=== PATIENT | female | born 1960 ===

== ENCOUNTER 2016-11-23 11:28 | Emergency (ER) | payer MEDICARE, MEDICAID ==
[2016-11-23 12:07] VITALS: BMI 54.8
--- NOTE | 2016-11-23 12:25 | ED PDOC ---
Arrival/HPI - General Chief Complaint: Back Pain Time Seen by Provider: 11/23/16 12:13 Historian: Patient, Family (Daughter) - History of Present Illness Time/Duration: Other (2 days) Symptom Onset: Sudden Symptom Course: Worsening Quality: Aching Severity Level: Severe Associated Symptoms (Text): 11/23/16 12:22 Patient reports that she was bending over to hop picker some trash and had acute onset of left lower back pain with radiation into her left buttocks. No abdominal pain nausea vomiting or diarrhea. No genitourinary symptoms. No weakness. No numbness. She has never experienced this previously. History of hypertension. She takes amlodipine sporadically. She is morbidly obese and crying in pain. Patient reports an aspirin allergy, but she takes Motrin and Aleve. Past Medical History - Infectious Disease Hx of Infectious Diseases: None - Tetanus Immunization Tetanus Immunization: Unknown - Cardiac Hx Hypertension: Yes - Pulmonary Hx Asthma: Yes - Psychiatric Hx Depression: No Hx Emotional Abuse: No Hx Physical Abuse: No Hx Substance Use: No - Surgical History Hx Section: Yes - Anesthesia Hx Anesthesia: No Hx Anesthesia Reactions: No Hx Malignant Hyperthermia: No - Suicidal Assessment Feels Threatened In Home Enviroment: No Family/Social History - Physician Review Nursing Documentation Reviewed: Yes Family/Social History: Unknown Family HX Smoking Status: Light Smoker < 10 Cigarettes Daily Hx Alcohol Use: No Hx Substance Use: No Hx Substance Use Treatment: No Allergies/Home Meds Allergies/Adverse Reactions: Allergies aspirin Allergy (Severe, Verified 11/23/16 12:23) ANAPHYLAXIS Home Medications: Home Meds Medication Instructions Recorded Confirmed Albuterol 0.09 mg IH PRN PRN 05/27/13 12/15/14 Fluticasone/Salmeterol 250/50 1 puff IH Q12 12/15/14 12/15/14 [Advair Diskus 250/50] Review of Systems - Physician Review All systems were reviewed & negative as marked: Yes - Review of Systems Constitutional: Normal Respiratory: Normal Cardiovascular: Normal Gastrointestinal: Normal Genitourinary Female: Normal Musculoskeletal: Back Pain. absent: Neck Pain Neurological: absent: Headache, Focal Weakness, Gait Changes Physical Exam Vital Signs Temp Pulse Resp BP Pulse Ox 11/23/16 12:29 98.1 F 93 H 20 154/111 H 99 11/23/16 12:02 98.6 F 84 18 179/100 H 96 Temperature: Afebrile Blood Pressure: Hypertensive Pulse: Regular Respiratory Rate: Normal Appearance: Positive for: Well-Appearing, Non-Toxic, Uncomfortable, Other ( Morbidly obese) Pain Distress: Severe Mental Status: Positive for: Alert and Oriented X 3 - Systems Exam Head: Present: Atraumatic, Normocephalic Neck: Present: Normal Range of Motion Respiratory/Chest: Present: Clear to Auscultation, Good Air Exchange. No: Respiratory Distress, Accessory Muscle Use Cardiovascular: Present: Regular Rate and Rhythm, Normal S1, S2. No: Murmurs Abdomen: Present: Normal Bowel Sounds. No: Tenderness, Distention, Peritoneal Signs, Rebound, Guarding Back: Present: Paraspinal Tenderness (Left lumbar paraspinous tenderness with no sciatic notch tenderness). No: CVA Tenderness, Midline Tenderness Upper Extremity: Present: Normal Inspection. No: Cyanosis, Edema Lower Extremity: Present: Normal Inspection. No: Edema Neurological: Present: GCS=15, CN II-XII Intact, Speech Normal, Motor Func Grossly Intact Skin: Present: Warm, Dry, Normal Color. No: Rashes Psychiatric: Present: Alert, Oriented x 3, Normal Insight, Normal Concentration Medical Decision Making ED Course and Treatment: 11/23/16 13:08 Symptoms markedly improved. Discharge home with daughter. Instructed to take her amlodipine as directed on a daily basis. Follow-up with PMD. Follow-up in the ER as needed. Smoking cessation and obesity counseling given. - Medication Orders Current Medication Orders: Cyclobenzaprine HCl (Flexeril) 10 mg PO ONCE ERICA Last Admin: 11/23/16 12:40 Dose: 10 MG Discontinued Medications Ketorolac Tromethamine (Toradol) 60 mg IM ONCE ONE Stop: 11/23/16 12:26 Last Admin: 11/23/16 12:40 Dose: 60 MG IM Administration Charges Document 11/23/16 12:40 MMA (Rec: 11/23/16 12:40 MMA [id number] Injection Site MAR Injection Site Left Deltoid Charges for Administration # of IM Administrations 1 Disposition/Present on Arrival - Present on Arrival Any Indicators Present on Arrival: No History of DVT/PE: No History of Uncontrolled Diabetes: No Urinary Catheter: No History of Decub. Ulcer: No History Surgical Site Infection Following: None - Disposition Have Diagnosis and Disposition been Completed?: Yes Diagnosis: Lumbar spine strain, Hypertension, Morbid obesity Disposition: HOME/ ROUTINE Disposition Time: 13:09 Patient Plan: Discharge Condition: IMPROVED Discharge Instructions (ExitCare): Acute Low Back Pain (ED) Additional Instructions: Rest and moist heat. Follow-up with PMD. Follow up in ER as needed. Prescriptions: Cyclobenzaprine [Flexeril] 5 mg PO Q8 #15 tab Naproxen [Naprosyn] 500 mg PO BID #14 tab Tramadol HCl [Ultram] 50 mg PO Q6 PRN #20 tab PRN Reason: Pain
[2016-11-23 12:29] VITALS: BP 154/111; PULSE 93; RESP 20; TEMP 98.1; O2SAT 99
== END 2016-11-23 13:36 | disposition home or self-care (01) ==
LOC: ED 11:28
DX: E66.01 Morbid (severe) obesity due to excess calories (principal); I10 Essential (primary) hypertension; S39.012A Strain of muscle, fascia and tendon of lower back, initial encounter; X50.1XXA Overexertion from prolonged static or awkward postures, initial encounter; F17.210 Nicotine dependence, cigarettes, uncomplicated
CPT/HCPCS: 96372; 99283; J1885

== ENCOUNTER 2016-11-26 08:43 | Emergency (ER) | payer MEDICARE, MEDICAID ==
[2016-11-26 08:44] VITALS: BMI 54.8
--- NOTE | 2016-11-26 08:51 | ED PDOC ---
Arrival/HPI - General Time Seen by Provider: 11/26/16 08:45 Historian: Patient - History of Present Illness Narrative History of Present Illness (Text): 11/26/16 08:47 A 55 year old female, whose past medical history includes hypertension, presents to the emergency department complaining of left lower back pain radiating to left buttock and lateral thigh. Patient was recently seen in the emergency room 3 days ago for the same pain. Patient was picking up trash and complained of left lower back pain radiating to left buttock. She denied any numbness, weakness or urinary symptoms. Patient discharged home with prescription for Flexeril and instructed to see PMD. Patient reports she was unable to see her PMD and came in today for further evaluation. Patient denies any fever, nausea, vomiting, diarrhea, constipation, abdominal pain, urinary symptoms, chest pain, shortness of breath, weakness, numbness or any other complaints. PMD: Dr. Lockhart Time/Duration: Other (3 days) Symptom Course: Unchanged Quality: Other Context: Home Past Medical History - Provider Review Nursing Documentation Reviewed: Yes - Infectious Disease Hx of Infectious Diseases: None - Tetanus Immunization Tetanus Immunization: Unknown - Cardiac Hx Hypertension: Yes - Pulmonary Hx Asthma: Yes - Psychiatric Hx Depression: No Hx Emotional Abuse: No Hx Physical Abuse: No Hx Substance Use: No - Surgical History Hx Section: Yes - Anesthesia Hx Anesthesia: No Hx Anesthesia Reactions: No Hx Malignant Hyperthermia: No - Suicidal Assessment Feels Threatened In Home Enviroment: No Family/Social History - Physician Review Nursing Documentation Reviewed: Yes Family/Social History: No Known Family HX Smoking Status: Light Smoker < 10 Cigarettes Daily Hx Alcohol Use: No Hx Substance Use: No Hx Substance Use Treatment: No Allergies/Home Meds Allergies/Adverse Reactions: Allergies aspirin Allergy (Severe, Verified 11/26/16 08:56) ANAPHYLAXIS Home Medications: Home Meds Medication Instructions Recorded Confirmed Albuterol 0.09 mg IH PRN PRN 05/27/13 11/26/16 Review of Systems - Physician Review All systems were reviewed & negative as marked: Yes - Review of Systems Constitutional: absent: Fevers Eyes: absent: Vision Changes ENT: absent: Hearing Changes Respiratory: absent: SOB Cardiovascular: absent: Chest Pain, Palpitations Gastrointestinal: absent: Abdominal Pain, Stool Changes, Constipation, Diarrhea , Nausea, Vomiting, Appetite Changes Genitourinary Female: absent: Dysuria, Frequency, Hematuria, Urine Output Changes Musculoskeletal: Back Pain (Left lower back pain raditing to left buttock and lateral thigh). absent: Neck Pain Skin: absent: Rash Neurological: absent: Headache, Dizziness, Focal Weakness, Gait Changes Endocrine: absent: Diaphoresis Hemo/Lymphatic: absent: Adenopathy Psychiatric: absent: Anxiety Physical Exam Vital Signs Reviewed: Yes Vital Signs Temp Pulse Resp BP Pulse Ox 11/26/16 11:16 98.0 F 79 18 179/83 H 98 11/26/16 08:46 97.8 F 87 18 181/91 H 99 Temperature: Afebrile Blood Pressure: Hypertensive Pulse: Regular Respiratory Rate: Normal Appearance: Positive for: Well-Appearing, Non-Toxic, Comfortable, Other (Obese female) Pain Distress: None Mental Status: Positive for: Alert and Oriented X 3 - Systems Exam Head: Present: Atraumatic, Normocephalic Pupils: Present: PERRL Extroacular Muscles: Present: EOMI Conjunctiva: Present: Normal Mouth: Present: Moist Mucous Membranes Neck: Present: Normal Range of Motion Respiratory/Chest: Present: Clear to Auscultation, Good Air Exchange. No: Respiratory Distress, Accessory Muscle Use Cardiovascular: Present: Regular Rate and Rhythm, Normal S1, S2. No: Murmurs Abdomen: Present: Normal Bowel Sounds. No: Tenderness, Distention, Peritoneal Signs Back: Present: Other (pinpoint tenderness to L buttock and L upper lat thigh along sciatic distribution). No: Midline Tenderness Upper Extremity: Present: Normal Inspection, NORMAL PULSES. No: Cyanosis, Edema Lower Extremity: Present: Normal Inspection, NORMAL PULSES. No: Edema Neurological: Present: GCS=15, CN II-XII Intact, Speech Normal, Motor Func Grossly Intact, Normal Sensory Function, Gait Normal Skin: Present: Warm, Dry, Normal Color. No: Rashes Psychiatric: Present: Alert, Oriented x 3, Normal Insight, Normal Concentration Medical Decision Making ED Course and Treatment: 11/26/16 08:47 Impression: A 55 year old female with left lower back pain radiating to left buttock and lateral thigh. Non-traumatic. Afebrile and well appearing. No neuro deficits. Seen in ED 3 days ago for same. Differential Diagnosis included but are not limited to: Sciatica vs bursitis. Plan: -- LS spine xray -- Urinalysis -- Flexeril and Toradol -- Reassess and disposition Prior Visits: Notes and results from previous visits were reviewed. Patient last seen in the ED on 11/23/16 for back pain. Progress Notes: Will order an xray to rule out any fracture since this is patients second visit for the same complaint. Will get ua. Patient instructed to follow up with her PMD to receive a referral for physical therapy. 11/26/16 09:38 Labs reviewed, normal urinalysis results, no blood. Report Date : 11/26/2016 11:59:07 PROCEDURE: Radiographs of the Lumbar Spine. Dictator : Mika Cooper IMPRESSION: Somewhat limited study due to the patient's body habitus. No evidence of acute fracture or dislocation. Advanced degenerative changes/ spondylosis associated with multilevel osteophyte formation and narrowing of the intervertebral disc spaces. 11/26/16 12:04 On re-evaluation, patient feels better and is in no acute distress. I have discussed the results and plan with the patient, who expresses understanding. Patient in agreement with plan to be discharged home. Patient is stable for discharge. Patient was instructed to follow up with physician and orthopedist or return if symptoms worsen or new concerning symptoms arise. - Lab Interpretations Lab Results: Lab Results 11/26/16 09:25: Urine Color Yellow, Urine Appearance Clear, Urine pH 5.5, Ur Specific [place] >= 1.030, Urine Protein Negative, Urine Glucose (UA) Negative, Urine Ketones Negative, Urine Blood Negative, Urine Nitrate Negative, Urine Bilirubin Negative, Urine Urobilinogen 0.2, Ur Leukocyte Esterase Negative - RAD Interpretation Radiology Orders: 11/26/16 09:13 LS SPINE WITH OBL > 18 YRS OLD [RAD] Stat - Medication Orders Current Medication Orders: Discontinued Medications Cyclobenzaprine HCl (Flexeril) 10 mg PO STAT STA Stop: 11/26/16 09:14 Last Admin: 11/26/16 09:33 Dose: 10 MG Diazepam (Valium) 5 mg PO STAT STA PRN Reason: Protocol Stop: 11/26/16 11:43 Ketorolac Tromethamine (Toradol) 30 mg IM STAT STA Stop: 11/26/16 09:14 Ketorolac Tromethamine (Toradol) 60 mg IM STAT STA Stop: 11/26/16 09:14 Last Admin: 11/26/16 09:33 Dose: 60 MG IM Administration Charges Document 11/26/16 09:33 SE (Rec: 11/26/16 09:33 SE [id number]) Injection Site MAR Injection Site Left Vastus Lateralis Charges for Administration # of IM Administrations 1 - Scribe Statement The provider has reviewed the documentation as recorded by the Scribe Hazel Escobar Provider Scribe Attestation: All medical record entries made by the Scribe were at my direction and personally dictated by me. I have reviewed the chart and agree that the record accurately reflects my personal performance of the history, physical exam, medical decision making, and the department course for this patient. I have also personally directed, reviewed, and agree with the discharge instructions and disposition. Disposition/Present on Arrival - Present on Arrival Any Indicators Present on Arrival: No History of DVT/PE: No History of Uncontrolled Diabetes: No Urinary Catheter: No History Surgical Site Infection Following: None - Disposition Have Diagnosis and Disposition been Completed?: Yes Diagnosis: Back pain Disposition: HOME/ ROUTINE Disposition Time: 12:04 Patient Plan: Discharge Patient Problems: Current Active Problems Problem Status Diagnosed Back pain Acute Condition: GOOD Discharge Instructions (ExitCare): Acute Low Back Pain (ED) Additional Instructions: Follow up with PMD within 2 days for ortho and PMR referral. Return to ED if condition worsens. Take medication as prescribed. Prescriptions: Cyclobenzaprine [Flexeril] 5 mg PO TID #14 tab traMADol [Ultram] 50 mg PO TID #14 tab Referrals: Dionicio Lockhart MD [Primary Care Provider] - Follow up with primary
[2016-11-26 09:02] VITALS: RESP 18
[2016-11-26 09:33] LABS: PH,URINE 5.5 (4.7-8.0); URINE APPEARANCE CLEAR (CLEAR); URINE BILIRUBIN NEGATIVE (NEGATIVE); URINE BLOOD NEGATIVE (NEGATIVE); URINE COLOR YELLOW (YELLOW); URINE GLUCOSE (UA) NEGATIVE (NEGATIVE); URINE KETONE NEGATIVE (NEGATIVE); URINE LEUKOCYTE ESTERASE NEGATIVE Leu/uL (NEGATIVE); URINE PROTEIN NEGATIVE mg/dL (<30 mg/dL); URINE UROBILINOGEN 0.2 E.U./dL (<1 E.U./dL)
[2016-11-26 11:17] VITALS: BP 179/83; PULSE 79; TEMP 98; O2SAT 98
--- NOTE | 2016-11-26 12:00 | RAD ---
PROCEDURE: Radiographs of the Lumbar Spine. HISTORY: back pain COMPARISON: No prior. FINDINGS: BONES: Normal alignment. No listhesis. No fracture. DISC SPACES: Advanced spondylosis and degenerative changes associated with large anterior and posterior osteophyte formation. There are multilevel narrowing of the disc spaces. OTHER FINDINGS: None. IMPRESSION: Somewhat limited study due to the patient's body habitus. No evidence of acute fracture or dislocation. Advanced degenerative changes/spondylosis associated with multilevel osteophyte formation and narrowing of the intervertebral disc spaces.
== END 2016-11-26 12:20 | disposition home or self-care (01) ==
LOC: ED 08:43
DX: M54.5 Low back pain (principal); I10 Essential (primary) hypertension; F17.210 Nicotine dependence, cigarettes, uncomplicated
CPT/HCPCS: 72110; 81003; 96372; 99284; J1885

== ENCOUNTER 2016-12-22 18:49 | Emergency (ER) | payer MEDICARE, MEDICAID ==
[2016-12-22 18:55] VITALS: BMI 62.4
[2016-12-22 19:11] VITALS: RESP 18; TEMP 97.9
--- NOTE | 2016-12-22 19:15 | ED PDOC ---
Arrival/HPI - General Chief Complaint: Chest Pain Time Seen by Provider: 12/22/16 19:00 Historian: Patient - History of Present Illness Narrative History of Present Illness (Text): 12/22/16 19:12 56 year old female with a past medical history that includes hypertension and asthma presents to the emergency department with chest pressure and shortness of breath since this morning. Patient also states she experienced palpitations last night. She states the shortness of breath feels different from her asthma. Patient reports she used her pump with no improvement. She also reports a tightness in the left side of her neck. Patient states she had similar symptoms in the past while she was [place] in [place] but did not see a doctor as symptoms resolved spontaneously. No recent travel or prolonged immobilization. Denies cough, runny nose, fever, congestion, calf pain, or other symptoms. PMD: Dr. Richardson Time/Duration: 24 hours Symptom Onset: Sudden Symptom Course: Unchanged Quality: Pressure Context: Home Past Medical History - Provider Review Nursing Documentation Reviewed: Yes - Infectious Disease Hx of Infectious Diseases: None - Tetanus Immunization Tetanus Immunization: Unknown - Reproductive Menopause: Yes - Cardiac Hx Hypertension: Yes - Pulmonary Hx Asthma: Yes - Neurological Hx Vertigo: Yes - Psychiatric Hx Substance Use: No - Surgical History Hx Section: Yes - Anesthesia Hx Anesthesia: No Hx Anesthesia Reactions: No Hx Malignant Hyperthermia: No - Suicidal Assessment Feels Threatened In Home Enviroment: No Family/Social History - Physician Review Nursing Documentation Reviewed: Yes Family/Social History: Unknown Family HX Smoking Status: Light Smoker < 10 Cigarettes Daily Hx Alcohol Use: No Hx Substance Use: No Hx Substance Use Treatment: No Allergies/Home Meds Allergies/Adverse Reactions: Allergies aspirin Allergy (Severe, Verified 11/26/16 08:56) ANAPHYLAXIS Home Medications: Home Meds Medication Instructions Recorded Confirmed Albuterol 0.09 mg IH PRN PRN 05/27/13 12/22/16 Losartan/Hydrochlorothiazide 1 tab PO DAILY 12/22/16 12/22/16 [Losartan-Hctz 50-12.5 mg Tab] Meclizine [Meclizine*] 12.5 mg PO TID 12/22/16 12/22/16 Review of Systems - Physician Review All systems were reviewed & negative as marked: Yes - Review of Systems Constitutional: absent: Fevers ENT: absent: Rhinorrhea, Sinus Congestion Respiratory: SOB. absent: Cough Cardiovascular: Chest Pain, Palpitations. absent: Edema, Calf Pain Musculoskeletal: Other (Tightness on the left side of her neck) Neurological: absent: Dizziness Physical Exam Vital Signs Reviewed: Yes Vital Signs Temp Pulse Resp BP Pulse Ox 12/22/16 21:25 100 H 18 130/93 H 97 12/22/16 18:50 97.9 F 105 H 18 171/82 H 99 Temperature: Afebrile Blood Pressure: Hypertensive Pulse: Tachycardic Respiratory Rate: Normal Appearance: Positive for: Well-Appearing, Non-Toxic, Comfortable, Other (Obese) Pain Distress: None Mental Status: Positive for: Alert and Oriented X 3 - Systems Exam Head: Present: Atraumatic, Normocephalic Pupils: Present: PERRL Extroacular Muscles: Present: EOMI Conjunctiva: Present: Normal Mouth: Present: Moist Mucous Membranes Neck: Present: Normal Range of Motion Respiratory/Chest: Present: Clear to Auscultation, Good Air Exchange. No: Respiratory Distress, Accessory Muscle Use Cardiovascular: Present: Regular Rate and Rhythm, Normal S1, S2. No: Murmurs Abdomen: Present: Normal Bowel Sounds. No: Tenderness, Distention, Peritoneal Signs Back: Present: Normal Inspection Upper Extremity: Present: Normal Inspection. No: Cyanosis, Edema Lower Extremity: Present: Normal Inspection. No: Edema, CALF TENDERNESS Neurological: Present: GCS=15, CN II-XII Intact, Speech Normal Skin: Present: Warm, Dry, Normal Color. No: Rashes Psychiatric: Present: Alert, Oriented x 3, Normal Insight, Normal Concentration Medical Decision Making ED Course and Treatment: Impression: 56 year old female with a past medical history that includes hypertension and asthma presents to the emergency department with chest pressure and shortness of breath since this morning. Differential Diagnosis included but are not limited to: Chest pain, shortness of breath r/o ACS r/o PE. Patients lungs wear clear and she doesn't appear in respiratory distress. Less likely asthma. Plan: -- EKG, CXR -- Labs -- Reassess and disposition Prior Visits: Notes and results from previous visits were reviewed. Patient last seen in ED on 11/26/16 for back pain and discharged home. Progress Notes: 12/22/16 21:03 The patient is choosing to leave against medical advice. She states that she thinks she was just stressed out and anxious because she's been taking care of her daughter and 5 grand kids which are alot of work. She can't handle it sometimes. Now that she's calm all her symptoms went away. She thank me for listening to her. I advised her that we should monitoring for cardiac causes but she still reitterated she wants to sign AMA. I have personally explained to the patient that choosing to do so may result in permanent bodily harm or . I have discussed at great length that without further evaluation and monitoring there may be unforeseen circumstances and/or deterioration causing permanent bodily harm or as a result of their choice. The patient is alert, oriented, and shows the mental capacity to make clear decisions regarding the patients health care at this time. The patient continues to wish to leave against medical advice. In light of the patients decision to leave against medical advice, follow-up has been arranged and the patient is aware of the importance to following up as instructed. The patient has been advised that they should return to the emergency room immediately if they change their mind at any time, or if their condition begins to change or worsen in any way.. - Lab Interpretations Lab Results: 12/22/16 19:15 12/22/16 19:15 Lab Results 12/22/16 20:50: Urine Color Straw, Urine Appearance Clear, Urine pH 6.5, Ur Specific Cummings <= 1.005, Urine Protein Negative, Urine Glucose (UA) Negative, Urine Ketones Negative, Urine Blood Negative, Urine Nitrate Negative, Urine Bilirubin Negative, Urine Urobilinogen 0.2, Ur Leukocyte Esterase Negative 12/22/16 19:15: WBC 7.6, RBC 4.65, Hgb 14.5, Hct 42.9, MCV 92.3, MCH 31.2, MCHC 33.8, RDW 13.9, Plt Count 333, MPV 10.0, Gran % 50.0, Lymph % (Auto) 35.5 H, [place] % (Auto) 10.6 H, Eos % (Auto) 3.5, Baso % (Auto) 0.4, Gran # 3.82, Lymph # 2.7, [place] # 0.8 H, Eos # 0.3, Baso # 0.03, PT 10.4, INR 0.96, APTT 28.7, D-Dimer , Quantitative 0.57 H, Sodium 137, Potassium 3.9, Chloride 98, Carbon Dioxide 29 , Anion Gap 14, BUN 11, Creatinine 0.7, Est GFR ( Amer) > 60, Est GFR ( Non-Af Amer) > 60, Random Glucose 107, Calcium 9.4, Magnesium 2.1, Total Bilirubin 0.6, AST 37, ALT 30, Alkaline Phosphatase 117, Lactate Dehydrogenase 532, Total Creatine Kinase 72, Troponin I < 0.01, NT-Pro-B Natriuret Pep 33.6, Total Protein 8.5 H, Albumin 4.1, Globulin 4.4, Albumin/Globulin Ratio 0.9 L I have reviewed the lab results: Yes Interpretation: Abnormal lab values (elevated dimer) - RAD Interpretation Radiology Orders: 12/22/16 19:15 CHEST PORTABLE [RAD] Stat 12/22/16 19:51 ANGIO CHEST PE PROTOCOL [CT] Stat - EKG Interpretation EKG Interpretation (Text): EKG shows sinus tachycardia at [address] segment elevations, normal axis, normal intervals Interpreted by ED Physician: Yes Type: 12 lead EKG - Medication Orders Current Medication Orders: Discontinued Medications Iohexol (Omnipaque 350 100 Ml) Confirm Administered Dose 350 mg .ROUTE .STK-MED ONE Stop: 12/22/16 20:00 Iohexol (Omnipaque 350 100 Ml) Confirm Administered Dose 350 mg .ROUTE .STK-MED ONE Stop: 12/22/16 20:01 - Scribe Statement The provider has reviewed the documentation as recorded by the Yolanda Hernandez Provider Scribe Attestation: All medical record entries made by the Yolanda were at my direction and personally dictated by me. I have reviewed the chart and agree that the record accurately reflects my personal performance of the history, physical exam, medical decision making, and the department course for this patient. I have also personally directed, reviewed, and agree with the discharge instructions and disposition. Disposition/Present on Arrival - Present on Arrival Any Indicators Present on Arrival: No History of DVT/PE: No History of Uncontrolled Diabetes: No Urinary Catheter: No History of Decub. Ulcer: No History Surgical Site Infection Following: None - Disposition Have Diagnosis and Disposition been Completed?: Yes Diagnosis: Chest pain, Shortness of breath Disposition: AGAINST MEDICAL ADVICE Disposition Time: 21:31 Condition: IMPROVED Discharge Instructions (ExitCare): Chest Pain (ED) Additional Instructions: Ms Hu, thank you for letting us take care of you today. Your provider was Dr. Hoffman. You were treated for Chest Pain, Shortness of Breathe. The emergency medical care you received today was directed at your acute symptoms. If you were prescribed any medication, please fill it and take as directed. It may take several days for your symptoms to resolve. Return to the Emergency Department if your symptoms worsen, do not improve, or if you have any other problems. Please contact your doctor or call one of the physicians/clinics you have been referred to that are listed on the Patient Visit Information form that is included in your discharge packet. Bring any paperwork you were given at discharge with you along with any medications you are taking to your follow up visit. Our treatment cannot replace ongoing medical care by a primary care provider (PCP) outside of the emergency department. Thank you for allowing the [facility] team to be part of your care today. If you had an X-Ray or CT scan: A Radiologist will review the ED reading if any change in treatment is needed we will contact you. If you had a blood, urine, or wound culture: It will take several days for the results, if any change in treatment is needed we will contact you. If you had an STI test: It will take 48 hours for the results. Please call after 1 week if you have not heard back. Referrals: Alecia Richardson MD [Primary Care Provider] - Follow up with primary
[2016-12-22 19:21] LABS: ADD MANUAL DIFF? NO
[2016-12-22 19:34] LABS: ALB/GLOB RATIO 0.9 (1.1-1.8); ALKALINE PHOSPHATASE 117 U/L (38-133); ALT/SGPT 30 U/L (7-56); AST/SGOT 37 U/L (15-39); BASO # 0.03 K/mm3 (0.0-2.0); BASO % 0.4 % (0.0-3.0); BILIRUBIN,TOTAL 0.6 mg/dL (0.2-1.3); BLOOD UREA NITROGEN 11 mg/dL (7-21); CALCIUM 9.4 mg/dL (8.4-10.5); CARBON DIOXIDE 29 mmol/L (21-33); CHLORIDE 98 mmol/L (98-107); EOS # 0.3 (0.0-0.7); EOS % 3.5 % (1.5-5.0); GFR AFRICAN-AMERICAN > 60; GLUCOSE,RANDOM 107 mg/dL (70-110); GRAN # 3.82 (1.4-6.5); HEMATOCRIT 42.9 % (36.0-48.0); LYMPH # 2.7 (1.2-3.4); LYMPH % 35.5 % (22.0-35.0); MAGNESIUM 2.1 mg/dL (1.7-2.2); MEAN CELL VOLUME 92.3 fL (80.0-105.0); MEAN CORPUSCULAR HEMOGLOBIN 31.2 pg (25.0-35.0); MEAN CORPUSCULAR HGB CONC 33.8 g/dl (31.0-37.0); MONO # 0.8 (0.1-0.6); MONO % 10.6 % (1.0-6.0); PLATELET COUNT 333 10^3/uL (120.0-450.0); POTASSIUM 3.9 mmol/L (3.6-5.0); RED CELL DISTRIBUTION WIDTH 13.9 % (11.5-14.5); SODIUM 137 mmol/L (132-148); TOTAL PROTEIN 8.5 g/dL (5.8-8.3); WHITE BLOOD COUNT 7.6 10^3/ul (4.5-11.0)
[2016-12-22 19:39] LABS: D DIMER 0.57 mg/L FEU (0-0.50); INR 0.96 (0.93-1.08); PARTIAL THROMBOPLASTIN TIME 28.7 Seconds (23.7-30.8)
[2016-12-22 19:52] LABS: TROPONIN I < 0.01 ng/mL
[2016-12-22] MEDS ORDERED: Iohexol 350 MG/100 ML VIAL ONE ×2 (19:59→20:00)
[2016-12-22 21:02] LABS: PH,URINE 6.5 (4.7-8.0); URINE BILIRUBIN NEGATIVE (NEGATIVE); URINE BLOOD NEGATIVE (NEGATIVE); URINE GLUCOSE (UA) NEGATIVE (NEGATIVE); URINE KETONE NEGATIVE (NEGATIVE); URINE LEUKOCYTE ESTERASE NEGATIVE Leu/uL (NEGATIVE); URINE PROTEIN NEGATIVE mg/dL (<30 mg/dL); URINE UROBILINOGEN 0.2 E.U./dL (<1 E.U./dL)
[2016-12-22 21:03] LABS: URINE APPEARANCE CLEAR (CLEAR); URINE COLOR STRAW (YELLOW)
[2016-12-22 21:27] VITALS: BP 130/93; PULSE 100; O2SAT 97
--- NOTE | 2016-12-23 07:31 | RAD ---
HISTORY: chest pain COMPARISON: Comparison chest 12/15/2014 theNo prior. FINDINGS: LUNGS: No active pulmonary disease. PLEURA: No significant pleural effusion identified, no pneumothorax apparent. CARDIOVASCULAR: Normal. OSSEOUS STRUCTURES: No significant abnormalities. VISUALIZED UPPER ABDOMEN: Normal. OTHER FINDINGS: None. IMPRESSION: No active disease.
--- NOTE | 2016-12-23 10:00 | CT ---
PROCEDURE: CT angiogram of the chest dated 12/22/2016 HISTORY: Shortness of breath. Rule out PE. COMPARISON: None. TECHNIQUE: Technique: Ue: CT angiography of the chest performed in standard fashion following the intravenous injection of approximately 98 cc of Omnipaque 350 contrast material. . Coronal and sagittal reformats, and well as rotating MIP images of the vessels generated at the workstation. Note that the study is limited due to suboptimal opacification of the pulmonary circulation and very large body habitus Radiation dose: Total exam DLP = 674.31 mGy-cm. This CT exam was performed using one or more of the following dose reduction techniques: Automated exposure control, adjustment of the mA and/or kV according to patient size, and/or use of iterative reconstruction technique. Findings: Note that the the distal of pulmonary vasculature is poorly delineated. No evidence of large filling defects seen within the pulmonary trunk, right and left main or lobar branches. The segmental and more so the subsegmental branches are poorly delineated on. Pulmonary trunk measures approximately 2.4 cm. Heart size normal. No significant pericardial effusion. Ascending thoracic aorta measures approximately 3.6 cm and descending thoracic aorta measures approximately 2.55 cm. There are a few small nonspecific mediastinal and hilar lymph nodes. The trachea and mainstem bronchi are patent on without obvious large intraluminal filling defects. There is a small hiatal hernia. Lung estrada are clear without focal consolidation or effusion. No obvious parenchymal nodule or mass. Some mild multilevel degenerative spondylosis of the thoracic spine. There appears to be mild enlargement of the thyroid gland right lobe large than left which is poorly delineated due to significant streak and beam hardening artifact related to dense clavicles, shoulder girdles large body habitus and dense contrast material within the right subclavian vein related intravenous injection. . Note made of a large exophytic cyst upper pole left kidney which measures at least 7 cm in transverse dimension. Consider followup renal ultrasound for further evaluation. Approximately 2.5 cm right adrenal nodule with smaller on approximately 1 cm left adrenal nodule poorly characterized of however possibly representing adenomas. Impression: Move very limited study. No definitive evidence of large central pulmonary embolus. Note that the as the segmental and subsegmental branches of the pulmonary arteries are poorly visualized on. Large left renal cyst. Bilateral adrenal nodules. Followup renal ultrasound recommended. Enlarged thyroid gland right lobe large than left. Recommend followup thyroid ultrasound.
--- NOTE | 2016-12-23 10:16 | CARD ---
APPROVED REPORT EKG Measurement Heart [id number] <Conclusion> Sinus tachycardia Otherwise normal ECG
== END 2016-12-22 21:31 | disposition left against medical advice (07) ==
LOC: ED 18:49
DX: R07.9 Chest pain, unspecified (principal); R06.02 Shortness of breath; F17.210 Nicotine dependence, cigarettes, uncomplicated; I10 Essential (primary) hypertension
CPT/HCPCS: 71010; 71275; 80053; 81003; 82550; 83615; 83735; 83880; 84484; 85025; 85378; 85610; 85730; 93005; 99283; Q9967

== ENCOUNTER 2018-02-19 11:52 | Emergency (ER) | payer MEDICARE, MEDICAID ==
[2018-02-19 12:50] VITALS: BMI 57.9
[2018-02-19 12:54] VITALS: BP 193/80; PULSE 74; RESP 18; TEMP 98.4; O2SAT 98
== END 2018-02-19 13:13 | disposition left against medical advice (07) ==
LOC: ED 11:52
DX: Z02.89 Encounter for other administrative examinations (principal); M54.5 Low back pain

== ENCOUNTER 2018-04-25 00:49 | Emergency (ER) | payer OTHER, MEDICAID ==
[2018-04-25 00:54] VITALS: BMI 66.6
[2018-04-25] MEDS ORDERED: Albuterol 0.083% Inhal Sol (2.5 mg/3 mL) UD INH STA (01:10)
[2018-04-25] MEDS ORDERED: Ipratropium 0.02% Inhal Soln (0.5 mg/2.5 ml) UD IH STA (01:10)
--- NOTE | 2018-04-25 01:24 | ED PDOC ---
Arrival/HPI - General Chief Complaint: Shortness Of Breath Time Seen by Provider: 04/25/18 00:55 Historian: Patient - History of Present Illness Narrative History of Present Illness (Text): 04/25/18 01:00 Beatriz Hu is 57 y/o F w/ h/o hypertension and asthma, presenting to the ED complaining of shortness of breath for the last couple of hours. Patient notes she was sleeping until suddenly awakened by a heavy feeling in her chest. Patient states she had palpitations with associated dyspnea & lightheadedness. She denies this episode feeling similar to her previous asthma attacks. Patient denies any fevers, chills, chest pain, abdominal pain, nausea, vomiting, diarrhea, back pain, neck pain, urinary symptoms, headache, dizziness, or any other complaint. PMD: Dr. Richardson Time/Duration: Prior to Arrival Symptom Onset: Sudden Symptom Course: Improving Quality: Other (heavy feeling in chest) Severity Level: Mild Activities at Onset: Rest Context: Home Past Medical History - Provider Review Nursing Documentation Reviewed: Yes - Travel History Have you recently traveled outside [place] w/in the past 3 mons?: No - Infectious Disease Hx of Infectious Diseases: None - Tetanus Immunization Tetanus Immunization: Unknown - Cardiac Hx Hypertension: Yes - Pulmonary Hx Asthma: Yes - Neurological Hx Vertigo: Yes - Endocrine/Metabolic Hx Diabetes Mellitus Type 2: No - Psychiatric Hx Depression: No Hx Emotional Abuse: No Hx Physical Abuse: No Hx Substance Use: No - Surgical History Hx Section: Yes (x2) - Anesthesia Hx Anesthesia: Yes Hx Anesthesia Reactions: No Hx Malignant Hyperthermia: No - Suicidal Assessment Feels Threatened In Home Enviroment: No Family/Social History - Physician Review Nursing Documentation Reviewed: Yes Family/Social History: No Known Family HX Smoking Status: Light Smoker < 10 Cigarettes Daily Hx Alcohol Use: No Hx Substance Use: No Hx Substance Use Treatment: No Allergies/Home Meds Allergies/Adverse Reactions: Allergies aspirin Allergy (Severe, Verified 04/25/18 00:53) ANAPHYLAXIS Home Medications: Home Meds Medication Instructions Recorded Confirmed Meclizine [Meclizine*] 12.5 mg PO TID PRN 12/22/16 02/19/18 Albuterol HFA [Ventolin HFA 90 1 puff IH DAILY PRN 02/19/18 02/19/18 mcg/actuation (8 g)] Budesonide/Formoterol Fumarate 1 puff IH DAILY 02/19/18 02/19/18 [Symbicort 80-4.5 Mcg Inhaler] amLODIPine [Norvasc] 1 tab PO DAILY 02/19/18 02/19/18 Review of Systems - Physician Review All systems were reviewed & negative as marked: Yes - Review of Systems Constitutional: Normal. absent: Fevers, Night Sweats Eyes: Normal ENT: Normal Respiratory: SOB. absent: Normal, Cough Cardiovascular: Palpitations, Other (patient notes "heavy feeling" in chest). absent: Normal Gastrointestinal: Normal. absent: Diarrhea, Nausea, Vomiting Genitourinary Female: Normal. absent: Urine Output Changes Musculoskeletal: Normal. absent: Back Pain, Neck Pain Skin: Normal Neurological: Other (patient notes some lightheadedness). absent: Normal, Headache, Dizziness Endocrine: Normal Hemo/Lymphatic: Normal Psychiatric: Normal Physical Exam - Physical Exam Narrative Physical Exam (Text): Morbidly obese. Vital Signs Reviewed: Yes Vital Signs Temp Pulse Resp BP Pulse Ox 04/25/18 02:32 98.3 F 87 18 138/72 100 04/25/18 01:25 18 98 04/25/18 01:11 94 H 18 142/63 98 Blood Pressure: Normal Pulse: Regular Respiratory Rate: Normal Appearance: Positive for: Well-Appearing, Non-Toxic Mental Status: Positive for: Alert and Oriented X 3 - Systems Exam Head: Present: Atraumatic, Normocephalic Pupils: Present: PERRL Extroacular Muscles: Present: EOMI Conjunctiva: Present: Normal Mouth: Present: Moist Mucous Membranes Neck: Present: Normal Range of Motion Respiratory/Chest: Present: Clear to Auscultation, Good Air Exchange. No: Respiratory Distress, Accessory Muscle Use, Wheezes Cardiovascular: Present: Regular Rate and Rhythm, Normal S1, S2. No: Murmurs Abdomen: No: Tenderness, Distention, Peritoneal Signs Back: Present: Normal Inspection Upper Extremity: Present: Normal Inspection. No: Cyanosis, Edema Lower Extremity: Present: Normal Inspection. No: Edema Neurological: Present: GCS=15, CN II-XII Intact, Speech Normal Skin: Present: Warm, Dry, Normal Color. No: Rashes Psychiatric: Present: Alert, Oriented x 3, Normal Insight, Normal Concentration Medical Decision Making ED Course and Treatment: 04/25/18 01:00 Impression: 57 year old female presents to the Emergency department complaining of shortness of breath. Plan: -- Labs -- X-Ray of chest -- Albuterol -- Atrovent -- Reassess and disposition Prior Visits: Notes and results from previous visits were reviewed. Progress Notes: 04/25/18 01:21 Labs reviewed with no leukocytosis or significant electrolyte abnormalities noted. Chest X-ray: Ordered, reviewed, and independently interpreted the CXR. Cardiomegaly. Low lung volumes. No PTX noted. Vascular congestion present. No infiltrates. 04/25/18 02:27 Reevaluation of patient reveals marked improvement in respiratory profile. Patient reports to feeling better and desires to go home. Updated patient on findings and educated on warning symptoms for return protocol. She is advised to follow up with PMD. She is stable for discharge. - Lab Interpretations Lab Results: 04/25/18 01:21 04/25/18 01:21 Lab Results 04/25/18 01:21: Sodium 146, Potassium 3.8, Chloride 107, Carbon Dioxide 25, Anion Gap 17, BUN 14, Creatinine 0.6 L, Est GFR ( Amer) > 60, Est GFR ( Non-Af Amer) > 60, Random Glucose 129 H, Calcium 9.0, Total Bilirubin 0.4, AST 41 H, ALT 39, Alkaline Phosphatase 116, Troponin I < 0.01, NT-Pro-B Natriuret Pep 58.1, Total Protein 7.7, Albumin 4.0, Globulin 3.7, Albumin/Globulin Ratio 1.1 04/25/18 01:21: PT 11.6, INR 1.02, APTT 35.0 04/25/18 01:21: WBC 8.9, RBC 4.24, Hgb 13.2, Hct 39.1, MCV 92.2, MCH 31.1, MCHC 33.8, RDW 14.1, Plt Count 324, MPV 10.4, Gran % 47.0 L, Lymph % (Auto) 34.9, [place] % (Auto) 9.5 H, Eos % (Auto) 7.8 H, Baso % (Auto) 0.8, Gran # 4.19, Lymph # (Auto) 3.1, [place] # (Auto) 0.9 H, Eos # (Auto) 0.7, Baso # (Auto) 0.07 - RAD Interpretation Radiology Orders: 04/25/18 01:15 CHEST PORTABLE [RAD] Stat Grab Hooker: ED Physician - EKG Interpretation EKG Interpretation (Text): NSR @ 96. No ST elevations or depressions. Interpreted by ED Physician: Yes Type: 12 lead EKG - Medication Orders Current Medication Orders: Discontinued Medications Albuterol Sulfate (Albuterol 0.083% Inhal Yas (2.5 Mg/3 Ml) Ud) 2.5 mg INH STAT STA Stop: 04/25/18 01:11 Last Admin: 04/25/18 01:29 Dose: 2.5 mg Ipratropium [place] (Atrovent) 0.5 mg IH STAT STA Stop: 04/25/18 01:11 Last Admin: 04/25/18 01:29 Dose: 0.5 mg - Scribe Statement The provider has reviewed the documentation as recorded by the Scribe Donna Silvah All medical record entries made by the Brianibe were at my direction and personally dictated by me. I have reviewed the chart and agree that the record accurately reflects my personal performance of the history, physical exam, medical decision making, and the department course for this patient. I have also personally directed, reviewed, and agree with the discharge instructions and disposition. Disposition/Present on Arrival - Present on Arrival Any Indicators Present on Arrival: No History of DVT/PE: No History of Uncontrolled Diabetes: No Urinary Catheter: No History of Decub. Ulcer: No History Surgical Site Infection Following: None - Disposition Have Diagnosis and Disposition been Completed?: Yes Diagnosis: Dyspnea Disposition: HOME/ ROUTINE Disposition Time: 02:27 Patient Plan: Discharge Condition: STABLE Discharge Instructions (ExitCare): Shortness of Breath (Dyspnea) (DC) Referrals: Jose Ritchie APN [Primary Care Provider] - Follow up with primary Forms: Turning[employer] (Japanese)
[2018-04-25 01:29] VITALS: RESP 18
[2018-04-25 01:39] LABS: BASO # 0.07 K/mm3 (0.0-2.0); BASO % 0.8 % (0.0-3.0); EOS # 0.7 (0.0-0.7); EOS % 7.8 % (1.5-5.0); GRAN # 4.19 (1.4-6.5); HEMOGLOBIN 13.2 g/dL (12.0-16.0); LYMPH # 3.1 (1.2-3.4); LYMPH % 34.9 % (22.0-35.0); MEAN CELL VOLUME 92.2 fl (80.0-105.0); MEAN CORPUSCULAR HEMOGLOBIN 31.1 pg (25.0-35.0); MEAN CORPUSCULAR HGB CONC 33.8 g/dl (31.0-37.0); MEAN PLATELET VOLUME 10.4 fl (7.0-11.0); MONO # 0.9 (0.1-0.6); MONO % 9.5 % (1.0-6.0); RBC 4.24 10^6/uL (3.5-6.1); RED CELL DISTRIBUTION WIDTH 14.1 % (11.5-14.5); WHITE BLOOD COUNT 8.9 10^3/ul (4.5-11.0)
[2018-04-25 01:55] LABS: ALB/GLOB RATIO 1.1 (1.1-1.8); GFR AFRICAN-AMERICAN > 60; GFR NON-AFRICAN AMERICAN > 60
[2018-04-25 01:57] LABS: ALT/SGPT 39 U/L (7-56); AST/SGOT 41 U/L (14-36); BLOOD UREA NITROGEN 14 mg/dL (7-21)
[2018-04-25 02:06] LABS: B-TYPE NATRIURETIC PEPTIDE 58.1 pg/mL (0-450); INR 1.02; PROTHROMBIN TIME 11.6 SECONDS (9.4-12.5); TROPONIN I < 0.01 ng/mL
[2018-04-25 03:24] VITALS: BP 138/72; PULSE 87; TEMP 98.3; O2SAT 100
--- NOTE | 2018-04-25 15:37 | RAD ---
Date of service: 04/25/2018 HISTORY: sob COMPARISON: No prior. FINDINGS: LUNGS: Poor inspiration with low lung volumes, crowded bronchovascular markings and mild bibasilar atelectasis. PLEURA: No significant pleural effusion identified, no pneumothorax apparent. CARDIOVASCULAR: Heart size upper limits of normal. OSSEOUS STRUCTURES: No significant abnormalities. VISUALIZED UPPER ABDOMEN: Normal. OTHER FINDINGS: None. IMPRESSION: Poor inspiration with low lung volumes, crowded bronchovascular markings and mild bibasilar atelectasis.
--- NOTE | 2018-04-26 11:24 | CARD ---
APPROVED REPORT Date of service: 04/25/2018 EKG Measurement Heart [id number] <Conclusion> Normal sinus rhythm ST abnormality, possible digitalis effect Abnormal ECG
== END 2018-04-25 02:32 | disposition home or self-care (01) ==
LOC: ED 00:49
DX: R06.00 Dyspnea, unspecified (principal); F17.210 Nicotine dependence, cigarettes, uncomplicated; I10 Essential (primary) hypertension